=== PATIENT | female | born 1975 | race Caucasian/White ===

== ENCOUNTER 2017-08-21 08:24 | Inpatient (IN) | payer OTHER ==
[~2017-08-21] VITALS: Ht 170.2 cm; Wt 39.8 kg
[~2017-08-21 08:24] MED LIST: ATARAX; ATIVAN1 MG PO; Antivert PO; COPAXONE20 MG/KIT PO; COPAXONE20 MG/KIT SC; GEODON20 MG PO; [UNRECOGNIZED DRUG - OTHER]; [UNRECOGNIZED DRUG - OTHER]; predniSONE PO
[2017-08-21 09:19] LABS: BASOPHIL (%) 0.2 % (0-1); EOSINOPHIL (%) 0.1 % (0-5); HEMATOCRIT 43.3 % (36.0-46.0); HEMOGLOBIN 14.6 G/DL (11.9-15.5); IMMATURE GRANULOCYTE (%) 0.4 % (0.0-0.7); LYMPHOCYTE (%) 7.9 % (15-42); LYMPHOCYTE COUNT 1.3 K/uL (1.0-2.8); MCH 29.6 PG (29.0-34.0); MCHC 33.7 G/DL (30.0-36.0); MCV 87.8 FL (83-99); MONOCYTE (%) 9.6 % (3-12); MONOCYTE COUNT 1.6 K/uL (0-0.8); NEUTROPHIL (%) 81.8 % (45-76); NEUTROPHIL COUNT 13.7 K/uL (1.8-6.4); PLATELET COUNT 354 K/uL (156-360); RBC DIS.WIDTH-SD 41.8 % (39-53); RED BLOOD COUNT 4.93 M/uL (3.80-5.20); WHITE BLOOD COUNT 16.7 K/uL (4.1-10.2)
[2017-08-21 09:30] LABS: CHLORIDE 102 mEq/L (99-109); POTASSIUM 4.3 mEq/L (3.7-5.4); SODIUM 137 mEq/L (136-147)
[2017-08-21 09:32] LABS: GLUCOSE 120 mg/dL (70-99)
[2017-08-21 09:36] LABS: CREATININE 0.7 mg/dL (0.6-1.3); GFR ESTIMATE (CALCULATED) > 59 mL/min/
[2017-08-21 09:37] LABS: UREA NITROGEN (BUN) 14 mg/dL (9-23)
[2017-08-21 10:06] LABS: APPEARANCE TURBID ((CLEAR)); BILIRUBIN NEGATIVE; BLOOD MODERATE; GLUCOSE (STRIP) NEGATIVE; KETONES NEGATIVE; LEUKOCYTES SMALL; NITRITE POSITIVE; PROTEIN (STRIP) 100; SPECIFIC GRAVITY 1.019 (1.000-1.030)
[2017-08-21 10:07] LABS: COLOR RED ((YELLOW))
[2017-08-21] MEDS ORDERED: CYANOCOBAL1000 MCG/2 SC (10:21)
[2017-08-21] MEDS ORDERED: FOLIC ACID1 MG PO (10:21)
[2017-08-21 10:33] LABS: RED BLOOD CELLS TNTC /HPF (0-5); WHITE BLOOD CELLS TNTC /HPF (0-5)
[2017-08-21 10:34] LABS: BACTERIA 4+ /HPF; UCUL ADDED? YES
[2017-08-21 11:06] LABS: BASE EXCESS -2.2 mEq/L (-3 to +3); BICARBONATE 20.6 mEq/L (22-26); CARBOXY HGB 1.8 % (0-5); METHEMOGLOBIN 1.1 % (0-1.5); PCO2 29 mm Hg (35-45); PO2 47 mm Hg (80-100); SITE RR; pH 7.46 (7.35-7.45)
[2017-08-21 11:07] LABS: COMMENTS - BLOOD GASES A+C+; DEVICE NC; O2 FLOW 3 L/MIN; TOTAL RESP RATE 18 resp/min
[2017-08-21 14:56] VITALS: BP 136/70
[2017-08-21 17:51] VITALS: BP 133/76
[2017-08-21 19:11] VITALS: BP 136/84
[2017-08-21 21:23] VITALS: BP 163/104
[2017-08-21 22:56] VITALS: BP 136/70
[2017-08-22 02:55] VITALS: BP 133/75
[2017-08-22 05:16] LABS: HEMOGLOBIN 13.2 G/DL (11.9-15.5); MCH 28.6 PG (29.0-34.0); MCV 86.6 FL (83-99); PLATELET COUNT 338 K/uL (156-360); RBC DIS.WIDTH-SD 41.1 % (39-53); RED BLOOD COUNT 4.62 M/uL (3.80-5.20); WHITE BLOOD COUNT 16.1 K/uL (4.1-10.2)
[2017-08-22 05:49] LABS: ALBUMIN 2.7 G/DL (3.2-4.8); ALKALINE PHOSPHATASE 74 IU/L (3-129); ALT (GPT) 10 IU/L (3-49); AST (GOT) 17 IU/L (2-34); CHLORIDE 106 MEQ/L (99-109); CREATININE 0.5 MG/DL (0.6-1.3); GFR ESTIMATE (CALCULATED) > 59 mL/min/; POTASSIUM 4.1 MEQ/L (3.7-5.4); SODIUM 138 MEQ/L (136-147); TOTAL BILIRUBIN 0.5 MG/DL (0.0-1.0); TOTAL PROTEIN 5.2 G/DL (6.4-8.3); UREA NITROGEN (BUN) 8 mg/dL (9-23)
[2017-08-22 06:16] LABS: GLUCOSE 83 mg/dL (70-99)
[2017-08-22 07:21] VITALS: BP 141/81
[2017-08-22 10:48] VITALS: BP 141/81
[2017-08-22 15:36] VITALS: BP 137/73
[2017-08-22 19:20] VITALS: BP 127/68
[2017-08-23] VITALS (7 sets, daily range): BP systolic 120–160; BP diastolic 67–96
[2017-08-23 05:47] LABS: HEMOGLOBIN 13.4 G/DL (11.9-15.5); MCH 28.6 PG (29.0-34.0); MCHC 32.7 G/DL (30.0-36.0); MCV 87.4 FL (83-99); PLATELET COUNT 350 K/uL (156-360); RBC DIS.WIDTH-SD 41.9 % (39-53); RED BLOOD COUNT 4.69 M/uL (3.80-5.20); WHITE BLOOD COUNT 16.4 K/uL (4.1-10.2)
[2017-08-23 06:18] LABS: ABS NEUTROPHIL COUNT 12.5; BAND NEUTROPHILS 8.8 % (0-8.0); BURR CELLS 1+; EOSINOPHIL ABS CT 0; LYMPHOCYTES 18.4 % (15.0-45.0); MONOCYTES 5.3 % (0-9.0); PLAT.SUFFICIENCY ADEQUATE; POIKILOCYTOSIS 1+; SEG.NEUTROPHILS 67.5 % (46.0-76.0); SPHEROCYTES 2+
[2017-08-23 06:26] LABS: CHLORIDE 107 MEQ/L (99-109); CREATININE 0.5 MG/DL (0.6-1.3); GFR ESTIMATE (CALCULATED) > 59 mL/min/; GLUCOSE 86 mg/dL (70-99); SODIUM 140 MEQ/L (136-147); UREA NITROGEN (BUN) 6 mg/dL (9-23)
[2017-08-23 08:16] LABS: MAGNESIUM 2.1 mg/dl (1.3-2.7)
[2017-08-24 04:53] VITALS: BP 132/74
[2017-08-24 05:46] LABS: BASOPHIL (%) 0.3 % (0-1); EOSINOPHIL (%) 0.8 % (0-5); EOSINOPHIL COUNT 0.1 K/uL (0-0.3); HEMATOCRIT 39.6 % (36.0-46.0); HEMOGLOBIN 12.9 G/DL (11.9-15.5); IMMATURE GRANULOCYTE (%) 0.6 % (0.0-0.7); LYMPHOCYTE (%) 13.2 % (15-42); LYMPHOCYTE COUNT 2.1 K/uL (1.0-2.8); MCH 28.5 PG (29.0-34.0); MCHC 32.6 G/DL (30.0-36.0); MCV 87.4 FL (83-99); MONOCYTE (%) 11.1 % (3-12); MONOCYTE COUNT 1.8 K/uL (0-0.8); NEUTROPHIL COUNT 11.8 K/uL (1.8-6.4); PLATELET COUNT 357 K/uL (156-360); RBC DIS.WIDTH-CV 13.2 % (11.8-14.6); RBC DIS.WIDTH-SD 42.5 % (39-53); RED BLOOD COUNT 4.53 M/uL (3.80-5.20); WHITE BLOOD COUNT 15.9 K/uL (4.1-10.2)
[2017-08-24 06:08] LABS: CHLORIDE 106 MEQ/L (99-109); CREATININE 0.4 MG/DL (0.6-1.3); GFR ESTIMATE (CALCULATED) > 59 mL/min/; GLUCOSE 99 mg/dL (70-99); POTASSIUM 3.3 MEQ/L (3.7-5.4); SODIUM 138 MEQ/L (136-147); UREA NITROGEN (BUN) 2 mg/dL (9-23)
[2017-08-24 08:36] VITALS: BP 139/86
[2017-08-24 11:57] VITALS: BP 133/87
[2017-08-24 19:20] VITALS: BP 143/93
[2017-08-24 23:37] VITALS: BP 137/82
[2017-08-25 04:31] VITALS: BP 144/90
[2017-08-25 05:15] LABS: BASOPHIL (%) 0.3 % (0-1); BASOPHIL COUNT 0.1 K/uL (0-0.1); EOSINOPHIL (%) 0.5 % (0-5); EOSINOPHIL COUNT 0.1 K/uL (0-0.3); HEMATOCRIT 37.9 % (36.0-46.0); HEMOGLOBIN 12.2 G/DL (11.9-15.5); IMMATURE GRANULOCYTE (%) 0.8 % (0.0-0.7); LYMPHOCYTE (%) 15.7 % (15-42); LYMPHOCYTE COUNT 2.4 K/uL (1.0-2.8); MCHC 32.2 G/DL (30.0-36.0); MCV 87.1 FL (83-99); MONOCYTE (%) 9.8 % (3-12); MONOCYTE COUNT 1.5 K/uL (0-0.8); NEUTROPHIL (%) 72.9 % (45-76); NEUTROPHIL COUNT 11.3 K/uL (1.8-6.4); PLATELET COUNT 394 K/uL (156-360); RBC DIS.WIDTH-CV 13.2 % (11.8-14.6); RBC DIS.WIDTH-SD 41.7 % (39-53); RED BLOOD COUNT 4.35 M/uL (3.80-5.20); WHITE BLOOD COUNT 15.5 K/uL (4.1-10.2)
[2017-08-25 06:03] LABS: CREATININE 0.3 MG/DL (0.6-1.3); GFR ESTIMATE (CALCULATED) > 59 mL/min/; GLUCOSE 72 mg/dL (70-99); POTASSIUM 2.9 MEQ/L (3.7-5.4); SODIUM 144 MEQ/L (136-147); UREA NITROGEN (BUN) 2 mg/dL (9-23)
[2017-08-25 06:04] LABS: CHLORIDE 117 MEQ/L (99-109)
[2017-08-25 07:53] VITALS: BP 159/96
[2017-08-25 08:44] LABS: PHOSPHORUS 2.4 mg/dL (2.5-4.9)
[2017-08-25 12:33] LABS: CHLORIDE 108 MEQ/L (99-109); CREATININE 0.3 MG/DL (0.6-1.3); GFR ESTIMATE (CALCULATED) > 59 mL/min/; SODIUM 139 MEQ/L (136-147); UREA NITROGEN (BUN) 2 mg/dL (9-23)
[2017-08-25 12:34] LABS: GLUCOSE 114 mg/dL (70-99); POTASSIUM 4.6 MEQ/L (3.7-5.4)
[2017-08-25 12:36] VITALS: BP 145/88
[2017-08-25 19:15] VITALS: BP 131/79
[2017-08-26] VITALS (8 sets, daily range): BP systolic 99–166; BP diastolic 43–92
[2017-08-26 05:32] LABS: BASOPHIL (%) 0.6 % (0-1); BASOPHIL COUNT 0.1 K/uL (0-0.1); EOSINOPHIL COUNT 0.2 K/uL (0-0.3); HEMATOCRIT 42.3 % (36.0-46.0); HEMOGLOBIN 13.7 G/DL (11.9-15.5); IMMATURE GRANULOCYTE (%) 2.5 % (0.0-0.7); LYMPHOCYTE (%) 29.3 % (15-42); LYMPHOCYTE COUNT 3.2 K/uL (1.0-2.8); MCH 28.1 PG (29.0-34.0); MCHC 32.4 G/DL (30.0-36.0); MCV 86.9 FL (83-99); MONOCYTE (%) 12.3 % (3-12); MONOCYTE COUNT 1.4 K/uL (0-0.8); NEUTROPHIL (%) 53.3 % (45-76); NEUTROPHIL COUNT 5.9 K/uL (1.8-6.4); PLATELET COUNT 476 K/uL (156-360); RBC DIS.WIDTH-CV 13.2 % (11.8-14.6); RBC DIS.WIDTH-SD 42.2 % (39-53); RED BLOOD COUNT 4.87 M/uL (3.80-5.20)
[2017-08-26 05:51] LABS: CHLORIDE 105 MEQ/L (99-109); CREATININE 0.4 MG/DL (0.6-1.3); GFR ESTIMATE (CALCULATED) > 59 mL/min/; GLUCOSE 87 mg/dL (70-99); SODIUM 141 MEQ/L (136-147); UREA NITROGEN (BUN) 3 mg/dL (9-23)
[2017-08-27 03:50] VITALS: BP 124/64
[2017-08-27 06:51] LABS: HEMATOCRIT 42.2 % (36.0-46.0); HEMOGLOBIN 13.7 G/DL (11.9-15.5); MCH 28.6 PG (29.0-34.0); MCHC 32.5 G/DL (30.0-36.0); MCV 88.1 FL (83-99); PLATELET COUNT 540 K/uL (156-360); RBC DIS.WIDTH-CV 13.4 % (11.8-14.6); RBC DIS.WIDTH-SD 43.8 % (39-53); RED BLOOD COUNT 4.79 M/uL (3.80-5.20); WHITE BLOOD COUNT 12.4 K/uL (4.1-10.2)
[2017-08-27 06:55] VITALS: BP 106/69
[2017-08-27 07:08] LABS: CHLORIDE 108 MEQ/L (99-109); CREATININE 0.5 MG/DL (0.6-1.3); GFR ESTIMATE (CALCULATED) > 59 mL/min/; GLUCOSE 96 mg/dL (70-99); POTASSIUM 4.5 MEQ/L (3.7-5.4); SODIUM 144 MEQ/L (136-147); UREA NITROGEN (BUN) 5 mg/dL (9-23)
[2017-08-27 07:51] LABS: BASOPHIL (%) 0.6 % (0-1); BASOPHIL COUNT 0.1 K/uL (0-0.1); EOSINOPHIL (%) 2.1 % (0-5); EOSINOPHIL COUNT 0.3 K/uL (0-0.3); IMMATURE GRANULOCYTE (%) 3.7 % (0.0-0.7); LYMPHOCYTE (%) 21.7 % (15-42); LYMPHOCYTE COUNT 2.7 K/uL (1.0-2.8); MONOCYTE (%) 10.1 % (3-12); MONOCYTE COUNT 1.3 K/uL (0-0.8); NEUTROPHIL (%) 61.8 % (45-76); NEUTROPHIL COUNT 7.6 K/uL (1.8-6.4)
[2017-08-27 11:18] VITALS: BP 117/69
[2017-08-27 16:45] VITALS: BP 141/68
[2017-08-27 19:48] VITALS: BP 141/82
[2017-08-28 01:01] VITALS: BP 127/78
[2017-08-28 04:20] VITALS: BP 135/71
[2017-08-28 06:37] LABS: HEMATOCRIT 41.5 % (36.0-46.0); HEMOGLOBIN 13.4 G/DL (11.9-15.5); MCH 28.2 PG (29.0-34.0); MCHC 32.3 G/DL (30.0-36.0); MCV 87.4 FL (83-99); PLATELET COUNT 586 K/uL (156-360); RBC DIS.WIDTH-CV 13.5 % (11.8-14.6); RBC DIS.WIDTH-SD 43.8 % (39-53); RED BLOOD COUNT 4.75 M/uL (3.80-5.20); WHITE BLOOD COUNT 14.6 K/uL (4.1-10.2)
[2017-08-28 07:00] LABS: CHLORIDE 103 MEQ/L (99-109); CREATININE 0.4 MG/DL (0.6-1.3); GFR ESTIMATE (CALCULATED) > 59 mL/min/; GLUCOSE 73 mg/dL (70-99); POTASSIUM 4.5 MEQ/L (3.7-5.4); SODIUM 137 MEQ/L (136-147); UREA NITROGEN (BUN) 7 mg/dL (9-23)
[2017-08-28 07:22] VITALS: BP 128/72
[2017-08-28 12:06] VITALS: BP 137/61
[2017-08-28 16:35] VITALS: BP 110/57
[2017-08-28 20:16] VITALS: BP 113/77
[2017-08-29 00:58] VITALS: BP 120/77
[2017-08-29 03:59] VITALS: BP 113/65
[2017-08-29 08:20] VITALS: BP 124/71
[2017-08-29 12:00] VITALS: BP 127/69
[2017-08-29 16:36] VITALS: BP 108/53
[2017-08-29 21:35] VITALS: BP 126/75
[2017-08-30 00:06] VITALS: BP 115/59
[2017-08-30 08:07] VITALS: BP 134/60
[2017-08-30 15:00] VITALS: BP 135/62
[2017-08-30] MEDS ORDERED: BACTRIM,SEPT1 TABLET PO (15:53)
[2017-08-30] MEDS ORDERED: BACLOFEN10 MG PO ×2 (15:53→18:01)
[2017-08-30] MEDS ORDERED: MARINOL10 MG PO ×2 (15:54→18:03)
[2017-08-30] MEDS ORDERED: ALPRAZOLAM0.25 M2 PO ×2 (16:00→18:03)
[2017-08-30] MEDS ORDERED: OXYCODONE H5 MG/5 ML PO ×2 (16:00→18:03)
[2017-08-30] MEDS ORDERED: LOPRESSOR25 MG PO (18:03)
[2017-08-30 22:20] VITALS: BP 126/76
[2017-08-31 07:12] VITALS: BP 123/72
== END 2017-08-31 15:37 | disposition home health service (06) | DRG 871 ==
LOC: EME 08:24 → 4EAST 10:34 → 5EAST 10:34 → EDOF 10:34 → ENRESERV 10:35 → 4EAST 14:21 → ENRESERV 08-26 17:54 → 5EAST 08-26 19:53 → ENPENDDIS 08-31 → 5EAST 08-31 15:37
PROVIDERS: Emergency Medicine; Hospitalist; Internal Medicine; Physician Assistant
PROC: 0RSDXZZ Reposition Left Temporomandibular Joint, External Approach (ICD-10-PCS; principal; 2017-08-27)
PROC: 0DH63UZ Insertion of Feeding Device into Stomach, Percutaneous Approach (ICD-10-PCS; principal; 2017-08-27)
DX: A41.9 Sepsis, unspecified organism (principal); J18.9 Pneumonia, unspecified organism; J96.01 Acute respiratory failure with hypoxia; R65.20 Severe sepsis without septic shock; N39.0 Urinary tract infection, site not specified; B96.20 Unspecified Escherichia coli [E. coli] as the cause of diseases classified elsewhere; E43 Unspecified severe protein-calorie malnutrition; R64 Cachexia; L89.159 Pressure ulcer of sacral region, unspecified stage; G35 Multiple sclerosis; R13.10 Dysphagia, unspecified; E83.51 Hypocalcemia; E83.39 Other disorders of phosphorus metabolism; M96.89 Other intraoperative and postprocedural complications and disorders of the musculoskeletal system; S03.00XA Dislocation of jaw, unspecified side, initial encounter; Y83.8 Other surgical procedures as the cause of abnormal reaction of the patient, or of later complication, without mention of misadventure at the time of the procedure; E87.6 Hypokalemia; I10 Essential (primary) hypertension; R32 Unspecified urinary incontinence; F31.9 Bipolar disorder, unspecified; F41.9 Anxiety disorder, unspecified; Y95 Nosocomial condition; Z68.1 Body mass index [BMI] 19.9 or less, adult; Z74.01 Bed confinement status; Z87.442 Personal history of urinary calculi
CPT/HCPCS: 31720; 36600; 71045; 80048; 80048 91; 80053; 81003; 82803; 83605; 83735; 84100; 85025; 85027; 87040; 87070; 87077; 87086; 87186; 87205; 87449; 87641; 92526 GN; 92610 GN; 94640; 94640 76; 94760; 94799; 97530 GP; 99202; 99281; 99285; A6214; J0456; J0610; J0690; J0692; J0696; J1644; J2405; J2543; J3010; J3370; J7030; J7040; J7050; Q0167; S0028